=== PATIENT | male | born 1965 | race American Indian/Alaskan Native ===

== ENCOUNTER 2021-11-17 12:14 | Emergency (ER) | payer SELFPAY ==
[2021-11-17] MEDS ORDERED: OXYMETAZOLINE 0.05% NASAL SPRAY NS ONE ×2 (12:35→14:31)
[2021-11-17] MEDS ORDERED: cloNIDine 0.1 MG TAB PO ONE (12:36)
--- NOTE | 2021-11-17 13:06 | Emergency Department Report ---
ED ENT HPI - General Chief complaint: Nosebleed Stated complaint: NOSE BLEED Source: patient Mode of arrival: Ambulatory Limitations: No Limitations - History of Present Illness Initial comments: 56-year-old male presents to the ED with nosebleed. Patient states that nosebleed has been since this a.m. patient states that he was able to stop nosebleed but nosebleeds return within the last 30 minute. Patient states he has a history of hypertension. Patient states that he takes amlodipine and other medications is unknown. Patient states that he sleeps under a fan. Andrew roman states that he does suffer from allergies issues. Patient denies any shortness of breath fever chills or nausea or vomiting present. Patient denies any headache ,blurry vision, chest pain at present time. Patient denies any drug use. No acute distress noted. No ill appearance noted. MD complaint: epistaxis -: This morning - Related Data Previous Rx's Medication Instructions Recorded Last Taken Type Butalb/Acetamin/Caff 50-325-40 1 tab PO Q8HR PRN #14 tablet 11/06/21 Unknown Rx [Fioricet 50-325-40] Allergies Allergy/AdvReac Type Severity Reaction Status Date / Time No Known Allergies Allergy Unverified 11/06/21 17:22 ED Dental HPI - General Chief complaint: Nosebleed Stated complaint: NOSE BLEED Source: patient Mode of arrival: Ambulatory Limitations: No Limitations - Related Data Previous Rx's Medication Instructions Recorded Last Taken Type Butalb/Acetamin/Caff 50-325-40 1 tab PO Q8HR PRN #14 tablet 11/06/21 Unknown Rx [Fioricet 50-325-40] Allergies Allergy/AdvReac Type Severity Reaction Status Date / Time No Known Allergies Allergy Unverified 11/06/21 17:22 ED Review of Systems ROS: Stated complaint: NOSE BLEED Other details as noted in HPI ED Past Medical Hx - Surgical History Hx Cholecystectomy: Yes Additional Surgical History: Right wrist - Medications Home Medications: Home Medications Medication Instructions Recorded Confirmed Last Taken Type Butalb/Acetamin/Caff 50-325-40 1 tab PO Q8HR PRN #14 tablet 11/06/21 Unknown Rx [Fioricet 50-325-40] ED Physical Exam - General Limitations: No Limitations General appearance: alert, in no apparent distress - Head Head exam: Present: atraumatic, normocephalic - Eye Eye exam: Present: normal appearance - ENT ENT exam: Present: mucous membranes moist, other (Bilateral nosebleed) - Neck Neck exam: Present: normal inspection - Respiratory Respiratory exam: Present: normal lung sounds bilaterally. Absent: respiratory distress - Cardiovascular Cardiovascular Exam: Present: regular rate, normal rhythm. Absent: systolic murmur, diastolic murmur, rubs, gallop - GI/Abdominal GI/Abdominal exam: Present: soft, normal bowel sounds - Rectal Rectal exam: Present: deferred - Extremities Exam Extremities exam: Present: normal inspection - Back Exam Back exam: Present: normal inspection - Neurological Exam Neurological exam: Present: alert, oriented X3 - Psychiatric Psychiatric exam: Present: normal affect, normal mood - Skin Skin exam: Present: warm, dry, intact, normal color. Absent: rash ED Course Vital Signs 11/17/21 11/17/21 12:18 13:48 Temperature 98 F Pulse Rate 116 H Respiratory 16 Rate Blood Pressure 138/88 Blood Pressure 136/100 131/88 [Left] O2 Sat by Pulse 95 Oximetry ED Medical Decision Making - Medical Decision Making 56-year-old male presents to the ED with nosebleed. Patient states that nosebleed has been since this a.m. patient states that he was able to stop nosebleed but nosebleeds return within the last 30 minute. Patient states he has a history of hypertension. Patient states that he takes amlodipine and other medications is unknown. Patient states that he sleeps under a fan. Patient states that he does suffer from allergies issues. Patient denies any shortness of breath fever chills or nausea or vomiting present. Patient denies any headache ,blurry vision, chest pain at present time. Patient denies any drug use. No acute distress noted. No ill appearance noted. Physical examination patient has bilateral nose bleed. Afrin spray to both nostrils failed attempt to stop nosebleed. Rhino Rocket insert by Dr. Ortiz and observed for 1 hour . Deflated Rhino Rocket and observed for another hour. No further epistaxis noted . Discussed plan of care with patient to follow-up with ENT. And left prior to given discharge packet Rechecked the patient is resting quietly quietly and comfortable and feeling better. I discussed the results of diagnostic study, my clinical impression and the plan for further treatment with the patient. Patient agrees with plan and discharge at this present time. All question addressed. I have given the patient instruction regarding a diagnosis ,expectation ,follow- up and return precaution. I explained to the patient that emergent condition may arise and to return to the ED for new worsen and any new persisting condition. I have explained the importance of following up with the primary care physician or referral physician listed below has instructed. The patient verbalized under standing of discharge instruction. Critical care attestation.: If time is entered above; I have spent that time in minutes in the direct care of this critically ill patient, excluding procedure time. ED Disposition Clinical Impression: Epistaxis Disposition: 01 HOME / SELF CARE / HOMELESS Is pt being admited?: No Does the pt Need Aspirin: No Condition: Stable Instructions: Nosebleed, [id number] Additional Instructions: Return to ED for any worsening symptoms Referrals: MARIELLE HAWLEY MD [Primary Care Provider] - 3-5 Days ROMÁN DAVALOS MD [Staff Physician] - 3-5 Days Time of Disposition: 16:19
[2021-11-17 13:53] VITALS: BP 138/88
== END 2021-11-17 16:42 | disposition home or self-care (01) ==
LOC: ED 12:14
DX: R04.0 Epistaxis (principal); Z90.49 Acquired absence of other specified parts of digestive tract
CPT/HCPCS: 99282

== ENCOUNTER → 2021-11-17 | Emergency (ER) | payer SELFPAY ==
[~2021-11-17] MED LIST: OXYMETAZOLINE 0.05% NASAL SPRAY NS ONE
--- NOTE | 2021-11-17 22:47 | Emergency Department Report ---
<YESSICA SIMENTAL - Last Filed: 11/18/21 04:18> ED ENT HPI - General Chief complaint: Nosebleed Stated complaint: NOSE BLEED Source: patient Mode of arrival: Ambulatory Limitations: No Limitations - History of Present Illness Initial comments: 56-year-old male with medical history of hypertension returns to the emergency department with a reemergence of epistaxis. He was initially seen in emergency department earlier today by AYDEN Jasso and for the epistaxis. Treatment was rendered with Afrin spray to each nare however failed to resolve the nosebleed. A Rhino Rocket was placed however for reasons unknown removed after 1 hour was point in time the epistaxis appeared to be controlled and he was discharged home. Shortly after being discharged home the the epistaxis restarted and he returns emergency department seeking further evaluation and treatment options. He reports no nasal trauma or posttreatment trauma. Reports no headache, no dizziness no hypotensive episodes, no fever, chills, sweats. No nausea, no vomiting MD complaint: epistaxis -: Sudden Location: nose Severity: mild Quality: dull Consistency: constant Improves with: none Worsens with: none Context-Epistaxis: history of similar Associated Symptoms: denies: cough, gum swelling, pain with swallowing, sore throat, tinnitus, discharge from ear, rhinorrhea - Related Data Previous Rx's Medication Instructions Recorded Last Taken Type Butalb/Acetamin/Caff 50-325-40 1 tab PO Q8HR PRN #14 tablet 11/06/21 Unknown Rx [Fioricet 50-325-40] Amoxicillin/K Clav Tab [Augmentin 1 tab PO Q12HR #14 tab 11/18/21 Unknown Rx 875 mg] Allergies Allergy/AdvReac Type Severity Reaction Status Date / Time No Known Allergies Allergy Verified 11/20/21 07:57 ED Dental HPI - General Chief complaint: Nosebleed Stated complaint: NOSE BLEED Source: patient Mode of arrival: Ambulatory Limitations: No Limitations - Related Data Previous Rx's Medication Instructions Recorded Last Taken Type Butalb/Acetamin/Caff 50-325-40 1 tab PO Q8HR PRN #14 tablet 11/06/21 Unknown Rx [Fioricet 50-325-40] Amoxicillin/K Clav Tab [Augmentin 1 tab PO Q12HR #14 tab 11/18/21 Unknown Rx 875 mg] Allergies Allergy/AdvReac Type Severity Reaction Status Date / Time No Known Allergies Allergy Verified 11/20/21 07:57 ED Review of Systems Comment: All other systems reviewed and negative ED Past Medical Hx - Surgical History Hx Cholecystectomy: Yes Additional Surgical History: Right wrist - Medications Home Medications: Home Medications Medication Instructions Recorded Confirmed Last Taken Type Butalb/Acetamin/Caff 50-325-40 1 tab PO Q8HR PRN #14 tablet 11/06/21 Unknown Rx [Fioricet 50-325-40] Amoxicillin/K Clav Tab [Augmentin 1 tab PO Q12HR #14 tab 11/18/21 Unknown Rx 875 mg] ED Physical Exam - General Limitations: No Limitations General appearance: alert, in no apparent distress - Head Head exam: Present: atraumatic, normocephalic - Eye Eye exam: Present: normal appearance - ENT ENT exam: Present: mucous membranes moist, other (Nosebleed present to the right nare appears to be spilling over to the posterior aspect of the left nare. No signs of any intraoral or nasal trauma. No septal deviation) - Expanded ENT Exam Expanded Throat exam: Positive: normal inspection. Negative: tonsillar erythema, tonsillar exudate, R peritonsillar mass - Neck Neck exam: Present: normal inspection - Respiratory Respiratory exam: Present: normal lung sounds bilaterally. Absent: respiratory distress - Cardiovascular Cardiovascular Exam: Present: regular rate, normal rhythm. Absent: systolic m urmur, diastolic murmur, rubs, gallop - GI/Abdominal GI/Abdominal exam: Present: soft, normal bowel sounds - Rectal Rectal exam: Present: deferred - Extremities Exam Extremities exam: Present: normal inspection - Back Exam Back exam: Present: normal inspection. Absent: CVA tenderness (R), CVA tenderness (L) - Neurological Exam Neurological exam: Present: alert, oriented X3, CN II-XII intact, normal gait - Psychiatric Psychiatric exam: Present: normal affect, normal mood. Absent: anxious, flat affect - Skin Skin exam: Present: warm, dry, intact, normal color. Absent: rash ED Medical Decision Making - Lab Data Result diagrams: 11/17/21 23:02 - Medical Decision Making 56-year-old F [place] male past no history of hypertension who was initially seen emergency department earlier today for epistaxis returns with a reemergence of symptoms. At that time Afrin was attempted and a Rhino Rocket was placed however was removed before discharge. Activity was evaluated no onset of epistaxis was spontaneous in etiology. Which appeared to be from bilateral nares.. Afrin was placed in each nare which was unsuccessful within it we then irrigated and dried the nasal cavity applied Afrin to a gauze pad and reapplied it to them due to the nature it was a brief moment of admission status resolution of about 30 to 40 minutes and then it began to reemerge. The bleeding was primarily appear to be for the right ear Rhino Rocket was placed epistaxis slowed later Rhino Rocket replaced to the left nare which showed complete resolution of nasal bleeding. I discussed with the measures importance of follow-up with ENT no ear nose and throat for definitive treatment of the epistaxis and to avoid coughing sneezing and excessive heat. ED Disposition Clinical Impression: Recurrent epistaxis Is pt being admited?: No Does the pt Need Aspirin: No Condition: Stable Instructions: Nosebleed, Adult Additional Instructions: Rhino Rocket was placed in the nose to ensure epistaxis was resolved please be sure to follow-up with your ear nose and throat for definitive treatment and disposition Prescriptions: Amoxicillin/K Clav Tab [Augmentin 875 mg] 1 tab PO Q12HR #14 tab Referrals: ROMÁN DAVALOS MD [Staff Physician] - 24 Hours MARCUS MAURICE MD [Referring] - 24 Hours <RAMÓN SO U - Last Filed: 11/21/21 19:57> ED Review of Systems ROS: Stated complaint: NOSE BLEED Other details as noted in HPI ED Course Vital Signs 11/17/21 11/18/21 17:41 04:37 Temperature 97.4 F L Pulse Rate 91 H 88 Respiratory 20 16 Rate Blood Pressure 131/88 Blood Pressure 115/68 [Left] O2 Sat by Pulse 96 100 Oximetry ED Medical Decision Making - Lab Data Result diagrams: 11/17/21 23:02 Laboratory Tests 11/17/21 11/17/21 23:02 23:02 WBC 11.4 H RBC 5.00 Hgb 15.1 Hct 46.7 H MCV 93 MCH 30 MCHC 32 RDW 15.1 Plt Count 398 Lymph % (Auto) 26.8 [place] % (Auto) 5.7 Eos % (Auto) 1.2 Baso % (Auto) 0.9 Lymph # (Auto) 3.1 [place] # (Auto) 0.7 Eos # (Auto) 0.1 Baso # (Auto) 0.1 Seg Neutrophils % 65.4 Seg Neutrophils # 7.5 PT 14.2 INR 0.99 APTT 28.3 - Medical Decision Making I have reviewed the PA/[employer]'s note and plan of care. I was available for consul tation as needed at all times during the patient's visit in the emergency department but was not consulted on this case. Coagulopathy, thrombocytopenia and consequential anemia/ hypovolemia ruled out. Rhinorocket placed per MLP after whicih bleeding stopped. Critical care attestation.: If time is entered above; I have spent that time in minutes in the direct care of this critically ill patient, excluding procedure time.
[2021-11-17 23:30] LABS: INR 0.99 (0.87-1.13)
[2021-11-17 23:31] LABS: Partial Thromboplastin Time 28.3 Sec. (24.2-36.6)
[2021-11-17 23:50] LABS: Basophils # (Auto) 0.1 K/mm3 (0.0-0.1); Basophils % (Auto) 0.9 % (0.0-1.8); Eosinophils # (Auto) 0.1 K/mm3 (0.0-0.4); Eosinophils % (Auto) 1.2 % (0.0-4.3); Hematocrit 46.7 % (35.5-45.6); Hemoglobin 15.1 gm/dl (11.8-15.2); Lymphocytes # (Auto) 3.1 K/mm3 (1.2-5.4); Lymphocytes % (Auto) 26.8 % (13.4-35.0); Mean Corpuscular HGB Conc 32 % (32-34); Mean Corpuscular Volume 93 fl (84-94); Monocytes # (Auto) 0.7 K/mm3 (0.0-0.8); Monocytes % (Auto) 5.7 % (0.0-7.3); Platelet Count 398 K/mm3 (140-440); Red Cell Distribution Width 15.1 % (13.2-15.2)
[2021-11-18 04:40] VITALS: BP 115/68
== END ==
LOC: ED 17:27
DX: R04.0 Epistaxis (principal)
CPT/HCPCS: 36415; 85025; 85610; 85730; 99283

== ENCOUNTER 2021-11-20 07:50 | Emergency (ER) | payer SELFPAY ==
[2021-11-20 07:58] VITALS: BP 121/80
[2021-11-20] MEDS ORDERED: OXYMETAZOLINE 0.05% NASAL SPRAY NS ONE (10:02)
--- NOTE | 2021-11-20 10:02 | Emergency Department Report ---
ED ENT HPI - General Chief complaint: Nosebleed Stated complaint: NOSE BLEED Time Seen by Provider: 11/20/21 09:56 Source: patient Mode of arrival: Ambulatory Limitations: No Limitations - History of Present Illness Initial comments: Patient comes in to have nasal packing removed that was placed on 11/17/21. Has history of Hypertension and sleep apnea. MD complaint: epistaxis Onset/Timin -: days(s) Location: nose Worsens with: none - Related Data Previous Rx's Medication Instructions Recorded Last Taken Type Butalb/Acetamin/Caff 50-325-40 1 tab PO Q8HR PRN #14 tablet 11/06/21 Unknown Rx [Fioricet 50-325-40] Amoxicillin/K Clav Tab [Augmentin 1 tab PO Q12HR #14 tab 11/18/21 Unknown Rx 875 mg] Allergies Allergy/AdvReac Type Severity Reaction Status Date / Time No Known Allergies Allergy Verified 11/20/21 07:57 ED Dental HPI - General Chief complaint: Nosebleed Stated complaint: NOSE BLEED Time Seen by Provider: 11/20/21 09:56 Source: patient Mode of arrival: Ambulatory Limitations: No Limitations - Related Data Previous Rx's Medication Instructions Recorded Last Taken Type Butalb/Acetamin/Caff 50-325-40 1 tab PO Q8HR PRN #14 tablet 11/06/21 Unknown Rx [Fioricet 50-325-40] Amoxicillin/K Clav Tab [Augmentin 1 tab PO Q12HR #14 tab 11/18/21 Unknown Rx 875 mg] Allergies Allergy/AdvReac Type Severity Reaction Status Date / Time No Known Allergies Allergy Verified 11/20/21 07:57 ED Review of Systems ROS: Stated complaint: NOSE BLEED Other details as noted in HPI Comment: All other systems reviewed and negative ED Past Medical Hx - Past Medical History Previous Medical History?: Yes - Surgical History Hx Cholecystectomy: Yes Additional Surgical History: Right wrist - Social History Smoking Status: Current Every Day Smoker - Medications Home Medications: Home Medications Medication Instructions Recorded Confirmed Last Taken Type Butalb/Acetamin/Caff 50-325-40 1 tab PO Q8HR PRN #14 tablet 11/06/21 Unknown Rx [Fioricet 50-325-40] Amoxicillin/K Clav Tab [Augmentin 1 tab PO Q12HR #14 tab 04/21/22 Unknown Rx 875 mg] ED Physical Exam - General Limitations: No Limitations General appearance: alert, in no apparent distress, obese - Head Head exam: Present: atraumatic, normocephalic, normal inspection - Eye Eye exam: Present: normal appearance, EOMI - ENT ENT exam: Present: mucous membranes moist. Absent: normal external ear exam (has nasal packing in both nostrils. ) - Neck Neck exam: Present: normal inspection, full ROM - Respiratory Respiratory exam: Present: normal lung sounds bilaterally, other (snoring) - Cardiovascular Cardiovascular Exam: Present: regular rate - Back Exam Back exam: Present: normal inspection, full ROM - Neurological Exam Neurological exam: Present: alert, oriented X3, CN II-XII intact, normal gait - Psychiatric Psychiatric exam: Present: normal affect, normal mood - Skin Skin exam: Present: warm, dry, intact, normal color. Absent: rash ED Course Vital Signs 11/20/21 11/20/21 11/20/21 07:57 08:01 09:26 Temperature 98.0 F Pulse Rate 90 Respiratory 18 119 H Rate Blood Pressure 121/80 [Right] O2 Sat by Pulse 93 93 95 Oximetry ED Medical Decision Making - Medical Decision Making Patient comes in to have nasal packing removed that was placed on 11/17/21. Has history of Hypertension and sleep apnea. Was able to pull packing with nose active bleeding. Nose sprayed with afrin. Patient is to follow up with his PCP and ENT. Critical care attestation.: If time is entered above; I have spent that time in minutes in the direct care of this critically ill patient, excluding procedure time. ED Disposition Clinical Impression: Epistaxis Disposition: HOME / SELF CARE / HOMELESS Is pt being admited?: No Does the pt Need Aspirin: No Condition: Stable Instructions: Nosebleed, [id number] Additional Instructions: Use afrin twice a day for the next 3 days. Follow up with you Primary Care Provider and Ear Nose and Throat provider. Referrals: PRIMARY CAREMD [Primary Care Provider] - 3-5 Days MARIELLE HAWLEY MD [Staff Physician] - 3-5 Days ENT [facility] [Provider Group] - 3-5 Days Forms: Work/School Release Form(ED) Time of Disposition: 10:12
== END 2021-11-20 10:20 | disposition home or self-care (01) ==
LOC: ED 07:50
DX: R04.0 Epistaxis (principal); Z98.890 Other specified postprocedural states; F17.200 Nicotine dependence, unspecified, uncomplicated
CPT/HCPCS: 99282

== ENCOUNTER 2021-11-30 00:47 | Emergency (ER) | payer SELFPAY ==
[2021-11-30 01:21] VITALS: BP 130/86
[2021-11-30] MEDS ORDERED: KETOROLAC 30 MG/1 ML INJ IM ONE (04:06)
[2021-11-30] MEDS ORDERED: ONDANSETRON 4 MG ODT TAB PO ONE (04:06)
[2021-11-30] MEDS ORDERED: HYDROcodone/ACETAMINOPHEN 7.5-325MG TAB PO ONE (04:06)
[2021-11-30 04:59] LABS: Basophils # (Auto) 0.1 K/mm3 (0.0-0.1); Basophils % (Auto) 1.1 % (0.0-1.8); Eosinophils # (Auto) 0.1 K/mm3 (0.0-0.4); Eosinophils % (Auto) 0.5 % (0.0-4.3); Hemoglobin 11.8 gm/dl (11.8-15.2); Lymphocytes # (Auto) 1.7 K/mm3 (1.2-5.4); Lymphocytes % (Auto) 15.3 % (13.4-35.0); Mean Corpuscular HGB Conc 33 % (32-34); Mean Corpuscular Volume 92 fl (84-94); Monocytes # (Auto) 0.9 K/mm3 (0.0-0.8); Monocytes % (Auto) 7.7 % (0.0-7.3); Platelet Count 413 K/mm3 (140-440); Red Blood Count 3.91 M/mm3 (3.65-5.03); Red Cell Distribution Width 14.7 % (13.2-15.2)
[2021-11-30 05:09] LABS: Bacteria,Urine 1+ /HPF (Negative); Bilirubin,Urine NEG (Negative); Blood,Urine SM (Negative); Color,Urine Yellow (Yellow); Mucus,Urine FEW /HPF; Protein,Urine <15 mg/dL mg/dL (Negative)
[2021-11-30 05:20] LABS: Alanine Aminotransferase 11 units/L (7-56); Albumin 3.7 g/dL (3.9-5); BUN/Creatinine Ratio 7; Blood Urea Nitrogen 8 mg/dL (9-20); Calcium 8.9 mg/dL (8.4-10.2); Hemolysis Index 3
[2021-11-30] MEDS ORDERED: diphenhydrAMINE 25 MG CAP PO ONE (05:23)
[2021-11-30] MEDS ORDERED: LIDOCAINE-MPF (1%) 10 MG/1 ML VIAL 5 ML INFILTRATI ONE (05:23)
--- NOTE | 2021-11-30 06:46 | Ultrasound Report ---
ULTRASOUND SCROTUM INDICATION / CLINICAL INFORMATION: RIGH TESTICULAR PAIN. COMPARISON: None available. FINDINGS -- RIGHT: The right testicle is slightly enlarged compared to the left testicle and demonstrates hyperemic colo r flow as well as mild heterogeneity. Low resistance arterial spectral waveforms are present. Additio melody, the right epididymal head is minimally enlarged also with hyperemic flow compared to the contr alateral structure. Small hydrocele present. FINDINGS -- LEFT: Left testicle demonstrates homogeneous echotexture with color flow and normal low resistance spectral arterial waveforms. Small cyst is present within the left epididymal head. This measures 3 mm. Small hydrocele is present. ADDITIONAL FINDINGS: None. IMPRESSION: 1. Findings as detailed above most suggestive of right-sided epididymitis, epididymoorchitis not excl uded. No evidence of testicular torsion. Signer Name: Jd Beckwith II, MD Signed: 11/30/2021 6:42 AM Workstation Name: [id number]
--- NOTE | 2021-11-30 06:53 | Emergency Department Report ---
ED Male HPI - General Chief complaint: Urogenital-Male Stated complaint: TESTICULAR PAIN Source: patient Mode of arrival: Ambulatory Limitations: No Limitations - History of Present Illness Initial comments: Patient is a 56-year-old -Honduran male with a history of hypertension and cgv-[id number]-[id number] diabetes who presents to the ED with complaint of acute onset persistent right testicular pain with swelling for the last 2 days. Patient states that the pain got worse in the last 12 hours. Patient states that the pain is worse with movement. Patient denies dysuria, urinary frequency and urgency, fever, chills, chest pain, shortness of breath, hematuria, abdo duran pain, lower back pain, penile discharge, traumatic injury or fall. -: Sudden, days(s) (2) Location: right testicle Radiation: none Severity: severe Severity scale (0 -10): 8 Quality: sharp Consistency: constant Improves with: none Worsens with: urination, palpation, movement denies other symptoms, swelling. denies: discharge, mass, rash, urinary retention, blood in urine, dysuria, fever, nausea/vomiting, other - Related Data Sexually active: Yes Previous Rx's Medication Instructions Recorded Last Taken Type Butalb/Acetamin/Caff 50-325-40 1 tab PO Q8HR PRN #14 tablet 11/06/21 Unknown Rx [Fioricet 50-325-40] Amoxicillin/K Clav Tab [Augmentin 1 tab PO Q12HR #14 tab 11/18/21 Unknown Rx 875 mg] Doxycycline Hyclate 100 mg PO Q12H #28 cap 11/30/21 Unknown Rx Ibuprofen [Motrin] 800 mg PO Q8HR PRN #30 tablet 11/30/21 Unknown Rx levoFLOXacin [Levaquin TAB] 500 mg PO QDAY #10 tablet 11/30/21 Unknown Rx traMADoL [Ultram] 50 mg PO Q6HR PRN #12 tablet 11/30/21 Unknown Rx Allergies Allergy/AdvReac Type Severity Reaction Status Date / Time No Known Allergies Allergy Verified 11/20/21 07:57 ED Review of Systems ROS: Stated complaint: TESTICULAR PAIN Other details as noted in HPI Constitutional: denies: chills, fever Eyes: denies: eye pain, eye discharge, vision change ENT: denies: ear pain, throat pain Respiratory: denies: cough, shortness of breath, wheezing Cardiovascular: denies: chest pain, palpitations Endocrine: no symptoms reported Gastrointestinal: denies: abdominal pain, nausea, diarrhea Genitourinary: urgency, dysuria, frequency, testicular pain (Right testicular pain). denies: hematuria, discharge, testicular mass Musculoskeletal: denies: back pain, joint swelling, arthralgia Skin: denies: rash, lesions Neurological: denies: headache, weakness, paresthesias Psychiatric: denies: anxiety, depression Hematological/Lymphatic: denies: easy bleeding, easy bruising ED Past Medical Hx - Past Medical History Previous Medical History?: Yes Hx Hypertension: Yes Hx Diabetes: Yes - Surgical History Hx Cholecystectomy: Yes Additional Surgical History: Right wrist - Social History Smoking Status: Current Every Day Smoker - Medications Home Medications: Home Medications Medication Instructions Recorded Confirmed Last Taken Type Butalb/Acetamin/Caff 50-325-40 1 tab PO Q8HR PRN #14 tablet 11/06/21 Unknown Rx [Fioricet 50-325-40] Amoxicillin/K Clav Tab [Augmentin 1 tab PO Q12HR #14 tab 11/18/21 Unknown Rx 875 mg] Doxycycline Hyclate 100 mg PO Q12H #28 cap 11/30/21 Unknown Rx Ibuprofen [Motrin] 800 mg PO Q8HR PRN #30 tablet 11/30/21 Unknown Rx levoFLOXacin [Levaquin TAB] 500 mg PO QDAY #10 tablet 11/30/21 Unknown Rx traMADoL [Ultram] 50 mg PO Q6HR PRN #12 tablet 11/30/21 Unknown Rx ED Physical Exam - General Limitations: No Limitations General appearance: alert, in no apparent distress - Head Head exam: Present: atraumatic, normocephalic, normal inspection - Eye Eye exam: Present: normal appearance, PERRL, EOMI Pupils: Present: normal accommodation - ENT ENT exam: Present: normal exam, normal orophraynx, mucous membranes moist, TM's normal bilaterally, normal external ear exam - Neck Neck exam: Present: normal inspection, full ROM. Absent: tenderness - Respiratory Respiratory exam: Present: normal lung sounds bilaterally. Absent: respiratory distress, wheezes, rales, stridor, chest wall tenderness, accessory muscle use, decreased breath sounds - Cardiovascular Cardiovascular Exam: Present: regular rate, normal rhythm, normal heart sounds. Absent: systolic murmur, diastolic murmur, rubs, gallop - GI/Abdominal GI/Abdominal exam: Present: soft, normal bowel sounds. Absent: tenderness, guarding, rebound, hyperactive bowel sounds, hypoactive bowel sounds, organomegaly, mass - exam: Present: testicular tenderness (Right testicular tenderness), scrotal swelling (Right scrotal swelling and tenderness). 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 Absent: lacerations, ecchymosis, bleeding - Extremities Exam Extremities exam: Present: normal inspection, full ROM, normal capillary refill - Back Exam Back exam: Present: normal inspection, full ROM. Absent: tenderness, CVA tenderness (R), CVA tenderness (L), muscle spasm, paraspinal tenderness, vertebral tenderness - Neurological Exam Neurological exam: Present: alert, oriented X3, CN II-XII intact, normal gait, reflexes normal - Psychiatric Psychiatric exam: Present: normal affect, normal mood - Skin Skin exam: Present: warm, dry, intact, normal color. Absent: rash ED Course Vital Signs 11/30/21 01:04 Temperature 98.3 F Pulse Rate 107 H Respiratory 18 Rate Blood Pressure 130/86 O2 Sat by Pulse 94 Oximetry ED Medical Decision Making - Lab Data Result diagrams: 11/30/21 04:23 11/30/21 04:23 - Radiology Data Radiology results: report reviewed, image reviewed [address] [address] Ultrasound Report Signed Patient: RONEL RINCON MR#: [id number] 5 : 1965 Acct:[id number] Age/Sex: 56 / M ADM Date: 11/30/21 Loc: ED Attending Dr: Ordering Physician: MAMI JEFF Date of Service: 11/30/21 Procedure(s): US testicular doppler comp Accession Number(s): [id number] cc: MAMI JEFF ULTRASOUND SCROTUM INDICATION / CLINICAL INFORMATION: RIGH TESTICULAR PAIN. COMPARISON: None available. FINDINGS -- RIGHT: The right testicle is slightly enlarged compared to the left testicle and demonstrates hyperemic color flow as well as mild heterogeneity. Low resistance arterial spectral waveforms are present. Additionally, the right epididymal head is minimally enlarged also with hyperemic flow compared to the contralateral structure. Small hydrocele present. FINDINGS -- LEFT: Left testicle demonstrates homogeneous echotexture with color flow and normal low resistance spectral arterial waveforms. Small cyst is present within the left epididymal head. This measures 3 mm. Small hydrocele is present. ADDITIONAL FINDINGS: None. IMPRESSION: 1. Findings as detailed above most suggestive of right-sided epididymitis, epididymoorchitis not excluded. No evidence of testicular torsion. Signer Name: Mai Freed II, MD Signed: 11/30/2021 6:42 AM Workstation Name: [id number] Transcribed By: DONN Dictated By: MAI FREED II, MD Electronically Authenticated By: MAI FREED II, MD Signed Date/Time: 11/30/21641 DD/ 8 TD/TT: Print - Medical Decision Making This is a 56-year-old -[place]uran male with a history of hypertension and xks-qqfznaa-mxtbouklo diabetes who presents to the ED with complaint of acute onset persistent right testicular pain with swelling for the last 2 days. Patient states that the pain got worse in the last 12 hours. Patient states that the pain is worse with movement. In the ED, patient is alert and oriented x3 and is not in any distress. Patient was treated for pain in the ED. Lab test results were reviewed and showed mild acute leukocytosis of 11,400 and urinalysis showed significant urinary tract infection. Testicular ultrasound showed findings most suggestive of right-sided epididymitis, epididymoorchitis not excluded. No evidence of testicular torsion. Patient also received Rocephin 1 g intramuscular injection in the ED. On reevaluation, patient's pain is well controlled medication. Patient will discharge home on pain medications and antibiotics and advised to follow-up with the urologist Dr. Rodney In 3 to 5 days for reevaluation. Patient was advised to follow-up with his primary care physician in 7 to 10 days for reevaluation. Patient was advised to return to the ED immediately if symptoms get worse. - Differential Diagnosis Testicular torsion; UTI; epididymitis; hydrocele; orchitis Critical care attestation.: If time is entered above; I have spent that time in minutes in the direct care of this critically ill patient, excluding procedure time. ED Disposition Clinical Impression: Right testicular pain, Acute epididymitis, Acute epididymo-orchitis, Acute urinary tract infection Disposition: 01 HOME / SELF CARE / HOMELESS Is pt being admited?: No Does the pt Need Aspirin: No Condition: Stable Instructions: Epididymitis (ED), Urinary Tract Infection, Adult, Csso-[id number], Testicular Self-Exam, [id number], Epididymitis Additional Instructions: All lab test results were reviewed and are all nonactionable except for urinary tract infection and urinalysis. Testicular ultrasound revealed findings most suggestive of right-sided epididymitis, epididymoorchitis not excluded. No eliazar dence of testicular torsion. Therefore take medications including antibiotics as advised, drink plenty of fluids, follow-up with your primary care physician in 7 to 10 days for reevaluation. Consider following up with a urologist Dr. Adkins in 5 to 7 days for reevaluation. Return to the ED immediately if symptoms get worse. Prescriptions: Doxycycline Hyclate 100 mg PO Q12H #28 cap levoFLOXacin [Levaquin TAB] 500 mg PO QDAY #10 tablet Ibuprofen [Motrin] 800 mg PO Q8HR PRN #30 tablet PRN Reason: Pain , Severe (7-10) traMADoL [Ultram] 50 mg PO Q6HR PRN #12 tablet PRN Reason: Pain Referrals: NASEEM RODNEY MD [Staff Physician] - 3-5 Days MARIELLE HAWLEY MD [Primary Care Provider] - 7-10 days Forms: STI Treatment and Prevention, Work/School Release Form(ED) Time of Disposition: 06:53 Print Language: TUNISIAN
== END 2021-11-30 07:18 | disposition home or self-care (01) ==
LOC: ED 00:47
DX: N45.3 Epididymo-orchitis (principal); N39.0 Urinary tract infection, site not specified; I10 Essential (primary) hypertension; E11.9 Type 2 diabetes mellitus without complications; F17.200 Nicotine dependence, unspecified, uncomplicated; Z79.899 Other long term (current) drug therapy
CPT/HCPCS: 36415; 80053; 81001; 85025; 87086; 93975; 96372; 99284; J0696; J1885; J3490; 87076; 87186; Q0162

== ENCOUNTER 2022-03-16 01:27 | Emergency (ER) | payer SELFPAY ==
[2022-03-16] MEDS ORDERED: AMOXICILLIN/K CLAV 875/125MG TAB PO ONE (05:23)
[2022-03-16] MEDS ORDERED: IBUPROFEN 800 MG TAB PO ONE (05:23)
--- NOTE | 2022-03-16 05:29 | Emergency Department Report ---
ED General Adult HPI - General Chief complaint: Earache Stated complaint: EAR STOPPED/PAIN Source: patient Mode of arrival: Ambulatory Limitations: No Limitations - History of Present Illness Initial comments: Is a 57-year-old male who presents for right ear pain and fever x3 days. States decreased hearing and drainage from right ear. Symptoms are exacerbated by activity. Symptoms are relieved by nothing tried. Patient denies other symptoms. No throat pain no dizziness or lightheadedness. - Related Data Previous Rx's Medication Instructions Recorded Last Taken Type Butalb/Acetamin/Caff 50-325-40 1 tab PO Q8HR PRN #14 tablet 11/06/21 Unknown Rx [Fioricet 50-325-40] Amoxicillin/K Clav Tab [Augmentin 1 tab PO Q12HR #14 tab 11/18/21 Unknown Rx 875 mg] Doxycycline Hyclate 100 mg PO Q12H #28 cap 11/30/21 Unknown Rx Ibuprofen [Motrin] 800 mg PO Q8HR PRN #30 tablet 11/30/21 Unknown Rx levoFLOXacin [Levaquin TAB] 500 mg PO QDAY #10 tablet 11/30/21 Unknown Rx traMADoL [Ultram] 50 mg PO Q6HR PRN #12 tablet 11/30/21 Unknown Rx Amoxicillin/K Clav Tab [Augmentin 1 tab PO BID 7 Days #14 tab 03/16/22 Unknown Rx 875 mg] Ibuprofen [Motrin 800 MG tab] 800 mg PO Q8HR PRN #30 tablet 03/16/22 Unknown Rx Allergies Allergy/AdvReac Type Severity Reaction Status Date / Time No Known Allergies Allergy Verified 11/20/21 07:57 ED Review of Systems ROS: Stated complaint: EAR STOPPED/PAIN Other details as noted in HPI Constitutional: malaise. denies: chills, fever Eyes: denies: eye pain, eye discharge, vision change ENT: ear pain. denies: throat pain, congestion Respiratory: denies: cough, shortness of breath, wheezing Cardiovascular: denies: chest pain, palpitations Endocrine: no symptoms reported Gastrointestinal: denies: abdominal pain, nausea, diarrhea Genitourinary: denies: urgency, dysuria Musculoskeletal: denies: back pain, joint swelling, arthralgia Skin: denies: rash, lesions Neurological: denies: headache, weakness, paresthesias Psychiatric: denies: anxiety, depression Hematological/Lymphatic: denies: easy bleeding, easy bruising ED Past Medical Hx - Past Medical History Hx Hypertension: Yes Hx Diabetes: Yes - Surgical History Hx Cholecystectomy: Yes Additional Surgical History: Right wrist - Social History Smoking Status: Current Every Day Smoker - Medications Home Medications: Home Medications Medication Instructions Recorded Confirmed Last Taken Type Butalb/Acetamin/Caff 50-325-40 1 tab PO Q8HR PRN #14 tablet 11/06/21 Unknown Rx [Fioricet 50-325-40] Amoxicillin/K Clav Tab [Augmentin 1 tab PO Q12HR #14 tab 11/18/21 Unknown Rx 875 mg] Doxycycline Hyclate 100 mg PO Q12H #28 cap 11/30/21 Unknown Rx Ibuprofen [Motrin] 800 mg PO Q8HR PRN #30 tablet 11/30/21 Unknown Rx levoFLOXacin [Levaquin TAB] 500 mg PO QDAY #10 tablet 11/30/21 Unknown Rx traMADoL [Ultram] 50 mg PO Q6HR PRN #12 tablet 11/30/21 Unknown Rx Amoxicillin/K Clav Tab [Augmentin 1 tab PO BID 7 Days #14 tab 03/16/22 Unknown Rx 875 mg] Ibuprofen [Motrin 800 MG tab] 800 mg PO Q8HR PRN #30 tablet 03/16/22 Unknown Rx ED Physical Exam - General Limitations: No Limitations General appearance: alert, in no apparent distress - Head Head exam: Present: normocephalic, normal inspection - Eye Eye exam: Present: PERRL, EOMI. Absent: conjunctival injection, nystagmus Pupils: Present: normal accommodation - ENT ENT exam: Present: normal orophraynx, mucous membranes moist, normal external ear exam - Expanded ENT Exam Expanded TM/Canal exam: Erythema: Right TM, Effusion: Right TM, Canal Tenderness: Right TM Mouth exam: Absent: trismus Teeth exam: Present: normal inspection Throat exam: Positive: normal inspection. Negative: tonsillar erythema, tons illomegaly, tonsillar exudate, R peritonsillar mass, L peritonsillar mass - Neck Neck exam: Present: normal inspection, full ROM. Absent: tenderness, lymphadeno debby - Respiratory Respiratory exam: Present: normal lung sounds bilaterally. Absent: respiratory distress, wheezes, stridor - Cardiovascular Cardiovascular Exam: Present: regular rate, normal rhythm, normal heart sounds. Absent: systolic murmur, diastolic murmur, rubs, gallop - GI/Abdominal GI/Abdominal exam: Present: soft, normal bowel sounds - Rectal Rectal exam: Present: deferred - Extremities Exam Extremities exam: Present: normal inspection, full ROM - Back Exam Back exam: Present: normal inspection, full ROM - Neurological Exam Neurological exam: Present: alert, oriented X3 - Psychiatric Psychiatric exam: Present: normal affect, normal mood - Skin Skin exam: Present: warm, dry, intact, normal color. Absent: rash ED Course Vital Signs 03/16/22 01:45 Temperature 98.4 F Pulse Rate 79 Respiratory 17 Rate Blood Pressure 133/97 [Right] O2 Sat by Pulse 94 Oximetry ED Medical Decision Making - Medical Decision Making This is AOM Right call patient DC'd to home with prescriptions, patient will follow-up primary care doctor in 2 to 3 days. Patient verbalized agreement and understanding with discharge plan. Patient DC'd home in stable condition at this time Critical care attestation.: If time is entered above; I have spent that time in minutes in the direct care of this critically ill patient, excluding procedure time. ED Disposition Clinical Impression: AOM (acute otitis media) Qualifiers: Otitis media type: serous Laterality: right Recurrence: non-recurrent Qualified Code(s): H65.01 - Acute serous otitis media, right ear Disposition: HOME / SELF CARE / HOMELESS Is pt being admited?: No Does the pt Need Aspirin: No Condition: Stable Instructions: Otitis Media, Adult Additional Instructions: Take medications as prescribed, follow-up with your doctor in 2 to 3 days. Return to emergency should symptoms worsen. Prescriptions: Amoxicillin/K Clav Tab [Augmentin 875 mg] 1 tab PO BID 7 Days #14 tab Ibuprofen [Motrin 800 MG tab] 800 mg PO Q8HR PRN #30 tablet PRN Reason: pain fever Referrals: TYLER ELIZALDE MD [Staff Physician] - 3-5 Days Forms: Work/School Release Form(ED) Time of Disposition: 05:30
[2022-03-16 06:33] VITALS: BP 137/98
== END 2022-03-16 06:33 | disposition home or self-care (01) ==
LOC: ED 01:27
DX: H66.91 Otitis media, unspecified, right ear (principal); I10 Essential (primary) hypertension; E11.9 Type 2 diabetes mellitus without complications; F17.200 Nicotine dependence, unspecified, uncomplicated; Z79.899 Other long term (current) drug therapy
CPT/HCPCS: 99282